=== PATIENT | female | born 1965 | race African-American/Black ===

== ENCOUNTER 2017-01-27 19:50 | Emergency (ER) | payer MEDICAID ==
[~2017-01-27] VITALS: Ht 170.2 cm; Wt 136.0 kg
[~2017-01-27 19:50] MED LIST: ASPI-1159 PO; CLAR10 PO; CYCL10TA7 PO; DOCU-138 PO; GABA-531 PO; HYDR-519 PO; HYDR12.529 PO; IPRA21SP2 NS; LOSA25TA3 PO; METF500T4 PO; MORP60TA6 PO; ORLI120C21 PO; PROT40 PO; SAXA5TAB PO
[2017-01-27] MEDS ORDERED: KETOROLAC 30MG/ML VIAL IM ONE (21:30)
[2017-01-27] MEDS ORDERED: LIDOCAINE HCL 1% 20ML VIAL (Pyxis) INJ INFIL ONE (21:30)
[2017-01-27 21:35] VITALS: BP 163/84
[2017-01-27] MEDS ORDERED: BACITRACIN ZINC OINT UDPKT TOP ONE (23:15)
== END 2017-01-27 23:20 | disposition home or self-care (01) ==
LOC: ER 19:50
DX: L03.012 Cellulitis of left finger (principal); I10 Essential (primary) hypertension; E11.9 Type 2 diabetes mellitus without complications; E66.9 Obesity, unspecified; F12.10 Cannabis abuse, uncomplicated; Z98.890 Other specified postprocedural states; Z79.82 Long term (current) use of aspirin
CPT/HCPCS: 10060; 73130; 96372; 99284; J1885; J3490; Z7610

== ENCOUNTER 2017-01-29 17:53 | Emergency (ER) | payer MEDICAID ==
[~2017-01-29] VITALS: Ht 170.2 cm; Wt 131.0 kg
[2017-01-29] MEDS ORDERED: KETOROLAC 60MG/2ML VIAL IM ONE (19:00)
[2017-01-29] MEDS ORDERED: LIDOCAINE HCL 1% 20ML VIAL (Pyxis) INJ MC ONE (19:00)
[2017-01-29] MEDS ORDERED: BACITRACIN ZINC OINT UDPKT TOP ONE (19:00)
[2017-01-29 20:14] VITALS: BP 147/82
== END 2017-01-29 20:15 | disposition home or self-care (01) ==
LOC: ER 18:12
DX: L03.012 Cellulitis of left finger (principal); E11.9 Type 2 diabetes mellitus without complications; Z79.84 Long term (current) use of oral hypoglycemic drugs; Z79.899 Other long term (current) drug therapy; Z79.82 Long term (current) use of aspirin
CPT/HCPCS: 10060; 96372; 99283; J1885; J3490; Z7610

== ENCOUNTER 2017-02-01 22:48 | Emergency (ER) | payer MEDICAID ==
[~2017-02-01] VITALS: Ht 170.2 cm; Wt 91.0 kg
[2017-02-01 23:19] VITALS: BP 142/74
[2017-02-02] MEDS ORDERED: BACITRACIN ZINC OINT UDPKT TOP ONE (00:15)
== END 2017-02-02 00:54 | disposition home or self-care (01) ==
LOC: ER 22:48
DX: Z48.01 Encounter for change or removal of surgical wound dressing (principal); F12.10 Cannabis abuse, uncomplicated; E11.9 Type 2 diabetes mellitus without complications; Z79.82 Long term (current) use of aspirin; Z90.49 Acquired absence of other specified parts of digestive tract; Z98.890 Other specified postprocedural states
CPT/HCPCS: 99283

== ENCOUNTER 2017-03-19 18:08 | Emergency (ER) | payer MEDICAID ==
[~2017-03-19] VITALS: Ht 170.2 cm; Wt 127.0 kg
[2017-03-19] MEDS ORDERED: KETOROLAC 60MG/2ML VIAL IM ONE (22:30)
[2017-03-19] MEDS ORDERED: SODIUM CHLORIDE 0.9% 1,000 ML IV ONE (23:33)
[2017-03-20 00:51] VITALS: BP 130/89
== END 2017-03-20 01:19 | disposition home or self-care (01) ==
LOC: ER 18:50
DX: J11.1 Influenza due to unidentified influenza virus with other respiratory manifestations (principal); E11.9 Type 2 diabetes mellitus without complications; Z79.82 Long term (current) use of aspirin; Z79.899 Other long term (current) drug therapy; F12.90 Cannabis use, unspecified, uncomplicated; Z90.49 Acquired absence of other specified parts of digestive tract
CPT/HCPCS: 71045; 87804; 96360; 96372; 99285; J1885; J7030; Z7610